=== PATIENT | female | born 1985 | race Caucasian/White ===

== ENCOUNTER 2018-11-28 00:34 | Emergency (ER) | payer BC ==
[2018-11-28 00:42] VITALS: BP 135/80; PULSE 77; TEMP 98.6; BMI 22.3
[2018-11-28] MEDS ORDERED: predniSONE 20 MG TABLET (UD) ONE (00:45)
[2018-11-28] MEDS ORDERED: predniSONE 20 MG TABLET (UD) PO ONE (00:47)
--- NOTE | 2018-11-28 00:47 | PDOC ---
History of Present Illness - General Chief Complaint: Hives Stated Complaint: HIVES Time Seen by Provider: 11/28/18 00:42 History Source: Patient Exam Limitations: No Limitations - History of Present Illness Initial Comments: 11/28/18 00:45 This is a 33-year-old female who comes in complaining of hives. Patient said she 's had them times one day. Patient doesn't know what she is ALLERGIC to but denies any specific new lotion screams ointments or foods. Patient denies any shortness of breath or difficulty swallowing. Allergies: None Past Medical History: none Social history: Lives with family. No smoking. No alcohol. No illicit drugs. Surgical history: None General: No fevers or chills, no weakness, no weight loss HEENT: No change in vision. No sore throat,. No ear pain CardioVascular: no chest discomfort. No shortness of breath Respiratory:No cough, or wheezing. Gastrointestinal: no nausea, vomiting, diarrhea or constipation, No rectal bleeding Genitourinary: No dysuria, hematuria, or frequency Musculoskeletal: No joint or muscle pain or swelling Neurologic: No headache, vertigo, dizziness or loss of consciousness Psychiatric: nor depression Skin:+ Hives no easy bruising Endocrine: no increased thirst or abnormal weight change Allergic: no skin or latex allergy All other systems reviewed and normal GENERAL: The patient is awake, alert, and fully oriented, in no acute distress. HEAD: Normal with no signs of trauma. EYES: Pupils equal, round and reactive to light, extraocular movements intact, sclera anicteric, conjunctiva clear. EXTREMITIES:atraumatic, Normal range of motion, no edema. NEUROLOGICAL: Normal speech, normal gait. PSYCH: Normal mood, normal affect. SKIN: Warm, Dry, normal turgor, + high as 2 through arms and legs as well as neck. Face is spared Past History - Past Medical History Allergies/Adverse Reactions: Allergies Allergy/AdvReac Type Severity Reaction Status Date / Time No Known Drug Allergies Allergy Verified 08/25/12 18:29 Home Medications: Ambulatory Orders Norelgestromin/Ethin.estradiol [Xulane Patch] 1 each TD DAILY 11/28/18 Spironolactone 100 mg PO DAILY 11/28/18 Cardiac Disorders: Yes (MURMUR) COPD: No Other medical history: ACNE - Suicide/Smoking/Psychosocial Hx Smoking Status: No Smoking History: Never smoked Number of Cigarettes Smoked Daily: 0 *Physical Exam - Vital Signs Last Vital Signs Temp Pulse Resp BP Pulse Ox 98.6 F 77 16 135/80 100 11/28/18 00:38 11/28/18 00:38 11/28/18 00:38 11/28/18 00:38 11/28/18 00:38 Moderate Sedation - Procedure Monitoring Vital Signs: Procedure Monitoring Vital Signs Temperature 98.6 F 11/28/18 00:38 Pulse Rate 77 11/28/18 00:38 Respiratory Rate 16 11/28/18 00:38 Blood Pressure 135/80 11/28/18 00:38 O2 Sat by Pulse Oximetry (%) 100 11/28/18 00:38 *DC/Admit/Observation/Transfer Diagnosis at time of Disposition: Hives - Discharge Dispostion Disposition: HOME Condition at time of disposition: Stable Decision to Admit order: No - Referrals Referrals: Vicenta Polk MD [Primary Care Provider] - - Patient Instructions Additional Instructions: Take the Medrol Dosepak as prescribed by the pack. If needed U can also take Benadryl in addition to the Medrol Dosepak U can take one tablet every 4-6 hours if needed Return to the emergency department immediately with ANY new, persistent or worsening symptoms. Continue any medications as previously prescribed by your physician. You should follow up with your primary doctor as soon as possible regarding today's emergency department visit. . Please make sure your doctor reviews the results of your emergency evaluation. Thank you for coming to the Emergency Department today for your care. It was a pleasure to see you today. Please note that your evaluation is INCOMPLETE until you follow-up with your doctor. - Post Discharge Activity
== END 2018-11-28 00:52 | disposition home or self-care (01) ==
LOC: FER 00:34
DX: L50.9 Urticaria, unspecified (principal)
CPT/HCPCS: 99281-25